=== PATIENT | male | born 1950 | race Caucasian/White ===

== ENCOUNTER → 2022-01-27 | Outpatient (CLI) | payer MEDICARE ==
[~2022-01-27] MED LIST: ATOR10 PO; DOXA1 PO; ERYT.5TO RIGHTEYE; LISI10; LISI20 PO; METO25ER PO
== END | disposition home or self-care (01) ==
LOC: LAB SHORT 12:20 → PLD 12:20
DX: L30.8 Other specified dermatitis (principal); R23.4 Changes in skin texture
CPT/HCPCS: 88305; 88312

== ENCOUNTER → 2023-07-04 | Outpatient (CLI) | payer MEDICARE | END | disposition home or self-care (01) | LOC: LAB SHORT 15:45 → LAB 15:45 | DX: C44.612 Basal cell carcinoma of skin of right upper limb, including shoulder (principal) | CPT/HCPCS: 88305 ==

== ENCOUNTER 2023-12-26 07:19 | Day surgery (SDC) | payer MEDICARE ==
[~2023-12-26] VITALS: Ht 167.6 cm; Wt 107.3 kg
[~2023-12-26 07:19] MED LIST changes: +METO25ER
[2023-12-26] MEDS ORDERED: Lactated Ringer's 1,000 ML IV SCH (09:10)
[2023-12-26 09:23] VITALS: BP 153/78
--- NOTE | 2023-12-26 09:25 | NUR ---
Ambulatory in Day SurgeryPre-Op teaching done. Pt verbalizes understanding. Patient confirms NPO status and agrees with scheduled surgery. History, Chart, Medications and Allergies reviewed before start of procedure.Patient States Post-Procedure ride home has been arranged.
--- NOTE | 2023-12-26 10:17 | NUR ---
12/26/23 1017 Bong Fernandez History, Chart, Medications and Allergies reviewed before start of procedure.MONITOR INTACT WITH CONTINUOUS PULSE OXIMETRY, CONTINUOUS END TITAL CO2, AND INTERMITTENT BLOOD PRESSURE.3-LEAD EKG REVIEWED WITH PHYSICIAN PRIOR TO START OF PROCEDURE.O2 VIA POM INTACT THROUGHOUT SEDATION/PROCEDURE.See Anesthesia record.
[2023-12-26] MEDS ORDERED: propofoL 20 ML IV ONE (10:21)
[2023-12-26] MEDS ORDERED: Midazolam HCl 1MG / ML 2ML Vial ONE (10:25)
[2023-12-26] MEDS ORDERED: Ondansetron HCl 2 MG / ML 2ML Vial IV PRN (10:35)
[2023-12-26] MEDS ORDERED: FentaNYL Citrate 50 MCG/ML 2 ML Injection IV PRN (10:35)
[2023-12-26 10:54] VITALS: BP 99/59
[2023-12-26 11:05] VITALS: BP 111/65
--- NOTE | 2023-12-26 11:07 | NUR ---
Discharge instructions reviewed with patient. Patient verbalizes understanding. Copy given to patient to take home. Patient States Post-Procedure ride home has been arranged. Discharged via wheelchair to private car for ride home.
== END 2023-12-26 11:08 | disposition home or self-care (01) ==
LOC: ORSCMMR 07:19 → ORD 09:30 → ORSCMMR 11:08
PROVIDERS: Internal Medicine Gastroenterology
PROC: 0DJD8ZZ Inspection of Lower Intestinal Tract, Via Natural or Artificial Opening Endoscopic (ICD-10-PCS; principal; 2023-12-26 09:30)
DX: Z12.11 Encounter for screening for malignant neoplasm of colon (principal); R19.5 Other fecal abnormalities; K57.30 Diverticulosis of large intestine without perforation or abscess without bleeding; K62.5 Hemorrhage of anus and rectum; I10 Essential (primary) hypertension; G47.30 Sleep apnea, unspecified; E78.00 Pure hypercholesterolemia, unspecified; Z87.891 Personal history of nicotine dependence; Z79.899 Other long term (current) drug therapy
CPT/HCPCS: J2250; J2704; J7120